=== PATIENT | male | born 1940 | race Caucasian/White ===

== ENCOUNTER 2016-08-17 16:53 | Inpatient (IN) | payer MEDICARE, OTHER ==
[~2016-08-17] VITALS: Ht 175.3 cm; Wt 102.5 kg
[2016-08-17] MEDS ORDERED: SEROQUEL100 MG PO (17:44)
[2016-08-17] MEDS ORDERED: MS CONTIN15 MG PO (17:45)
[2016-08-17] MEDS ORDERED: PROTONIX40 MG PO (17:45)
[2016-08-17] MEDS ORDERED: ATIVAN0.5 MG PO (17:46)
[2016-08-17] MEDS ORDERED: ACETAMINOPHEN325 MG PO (17:49)
[2016-08-17] MEDS ORDERED: SINEMET 25-1001 EACH PO (18:12)
[2016-08-17] MEDS ORDERED: COMTAN200 MG PO (18:13)
[2016-08-17] MEDS ORDERED: MILK OF MAGNESI30 ML PO (18:14)
[2016-08-17] MEDS ORDERED: BENGAY ULTRA S113 GM (18:17)
[2016-08-17] MEDS ORDERED: PERCOCET 5-3251 TAB PO (18:20)
[2016-08-17] MEDS ORDERED: MIRAPEX0.5 MG PO (18:21)
[2016-08-17] MEDS ORDERED: PROPRANOLOL HCL20 MG PO (18:22)
[2016-08-17] MEDS ORDERED: SENNA8.6 MG PO (18:24)
[2016-08-17 18:47] VITALS: BP 118/65; BMI 33.4
--- NOTE | 2016-08-17 19:03 | NUR ---
PATIENT ADMITTED TO SNF FROM [facility], HE HAS PARKINSON'S AND HE IS SHAKING. THE REASON HE IS HERE IS THAT HE SUNDOWNS AND BEGINS TO HALLUCINATE. HE SAYS HE KNOWS AT TIMES WHEN HE HALLUCINATES, BUT HE MOSTLY DOES NOT EVER KNOW WHEN HE IS MORE CONFUSED. HE FELL AT HOME THEN HE WENT TO REHAB AT [facility] THEN BECAME AGGRESSIVE AT REHAB AND WAS SENT TO ICU STEP DOWN FOR BEHAVIOR AND THEN TRANSFERRRED HERE.
[2016-08-17 19:30] VITALS: BP 103/76
[2016-08-17 19:59] LABS: BASOPHILS 0.3 % (0-2); EOSINOPHILS 6.6 % (0-7); HEMATOCRIT 42.6 % (42.0-54.0); HEMOGLOBIN 14.3 g/dL (13.5-17.5); IMMATURE GRANULOCYTES 0.3 % (0-5); LYMPHOCYTES 20.8 % (15-50); MCH 31.8 pg (26.0-34.0); MCHC 33.6 g/dL (31.0-37.0); MCV 94.9 fL (80.0-100.0); MEAN PLATELET VOLUME 9.5 fL (7.4-10.4); MONOCYTES 10.2 % (2-11); NEUTROPHILS 61.8 % (40-80); PLATELET COUNT 230 10x3/uL (130-400); RBC 4.49 10x6/uL (4.20-6.10); RDW 14.2 % (11.5-14.5); WBC 6.7 10x3/uL (4.8-10.8)
[2016-08-17 20:16] LABS: HEMOGLOBIN A1C 5.4 % (4.8-6.0)
[2016-08-17 20:44] LABS: ALBUMIN 3.3 g/dL (3.4-5.0); BILIRUBIN - TOTAL 0.56 mg/dL (0.2-1.3); CALCIUM 9.1 mg/dL (8.5-10.1); CARBON DIOXIDE 23.3 mmol/L (21.0-32.0); CHOL - HDL RATIO 4.3 ratio (2.3-4.9); CREATININE - SERUM 1.3 mg/dL (0.6-1.3); LDL-HDL RATIO 2.8 ratio (1.5-3.5); POTASSIUM - SERUM 4.3 mmol/L (3.5-5.1); PROTEIN - SERUM 7.4 g/dL (6.4-8.2); THYROID STIMULATING HORMONE 2.94 uIU/mL (0.36-3.74)
--- NOTE | 2016-08-17 23:49 | NUR ---
SAT UP ON SIDE OF BBED, INSISTING TO GET OUT OF OUR UNCOMFORTABLE BED. HE STARTED EXPERIENCING AN INCRESED LEVEL OF ANXIETY, YELLING, CLINCHED FISTS, HITTING STAFF, AND THREATENING COMMENTS TO HARM STAFF. ASSITED PATIENT IN RECLINER FOR COMFORT OF HIS BACK. STILL AGITATED, GAVE HALDOL 2 MG AND ATIVAN 0.5 MG IM IN RIGHT DELTOID.
[2016-08-18 09:02] VITALS: BP 135/64
--- NOTE | 2016-08-18 11:00 | NUR ---
B) PATIENT IS AWAKE AND ALERT, HE IS CALM AND COOPERATIVE SINCE HE IS UP OUT OF BED AND HAS RECEIVED AM MEDS. PATIENT IS DEMANDING AT TIMES. HE CALLS OUT FOR HIS KIM AND DOES HAVE SOME INTERMITTANT CONFUSION. I) PROVIDE PRESCRIBED MEDS. R) PATIENT IS COMPLIANT WITH MEDS AND HE IS KNOWLEDGABLE ABOUT THEM. PATIENT DID STAND WITH ASSIST, BUT HE DOES NOT WALK. P) CONTINUE PLAN OF CARE.
--- NOTE | 2016-08-18 15:19 | NUR ---
PATIENT C/O BACK PAIN AND REQUESTS A PAIN PILL, PROVIDED HIM OXYCODONE 5/325 PER ORDER. PATIENT RATES PAIN 8/10.
--- NOTE | 2016-08-18 16:00 | NUR ---
PATIENT RATES PAIN 5/10 AT THIS TIME.
--- NOTE | 2016-08-18 17:21 | NUR ---
PATIENT'S SPOUSE HERE AND SHE SAYS PT. WAS ALWAYS BUSY, NEVER LAZY AND ALL OF THIS IS VERY DIFFICULT FOR THEM, LIFE CHANGING. SHE SAYS PATIENT USE TO WORK FOR THE [employer] AND PATIENT SAID "YES, I HAVE MADE DECISIONS THAT HAVE CHANGED HISTORY".
[2016-08-18 19:30] VITALS: BP 115/81
--- NOTE | 2016-08-19 03:10 | NUR ---
B) Recieved patient in the day room alert and oriented to self and hospital, patient able to transfer and ambulate with assist for short distances, calm and cooperative this shift, I) Administered perscribed medications, monitored for falls and safety, R) Medication compliant, resting quietly now, P) Continue plan of care.
[2016-08-19 08:57] VITALS: BP 164/79
[2016-08-19 13:13] LABS: APPEARANCE CLEAR (CLEAR); COLOR DK YELLOW (YELLOW); GLUCOSE NEGATIVE (NEGATIVE); KETONE NEGATIVE (NEGATIVE); LEUKOCYTE ESTERASE TRACE (NEGATIVE); NITRITE NEGATIVE (NEGATIVE); PROTEIN NEGATIVE (NEGATIVE); SPECIFIC GRAVITY 1.015 (1.005-1.020)
[2016-08-19 13:14] LABS: BILIRUBIN NEGATIVE (NEGATIVE); EPITHELIAL CELLS 0-5 /hpf (0-5); RED CELLS - URINE OCC /hpf (0-5); UROBILINOGEN NORMAL (NORMAL); WHITE CELLS - URINE OCC /hpf (0-5)
[2016-08-19 13:15] LABS: BACTERIA FEW /hpf (NONE SEEN); MUCUS >1+ /lpf (NONE SEEN)
--- NOTE | 2016-08-19 18:15 | NUR ---
Patient has complaints of pain 7/10. He says that pain increases his tremors. Patient was given aspercreme, repositioned, along with prn percocet, which brought his pain level down, to a 5/10. Continue to monitor, continue plan of care
[2016-08-19 19:30] VITALS: BP 146/74
--- NOTE | 2016-08-19 22:28 | NUR ---
B) Recieved patient sitting in a dann chair in the day room watching TV, alert and oriented X 3, I) Administered perscribed medications, PRN Percocet given for leg pain at 2215, repositioned in bed, monitored for falls and safety, R) Medication compliant, resting in bed, P) Continue plan of care.
[2016-08-20 07:00] VITALS: BP 112/59
--- NOTE | 2016-08-20 14:51 | NUR ---
Patient is complaining of chronic pain, started with a 10/10 on the pain scale this morning. Patient repositioned, given prn percocet and tylenol. He was placed on geomat. Patient resting in dayroom, with eyes closed. Pain scale 5/10. continue to monitor
[2016-08-20 19:42] VITALS: BP 140/68
--- NOTE | 2016-08-20 19:59 | NUR ---
RECEIVED IN HALLWAY. SITTING IN A RECLINER OUTSIDE OF NURSES STAION. SOCIALIZING WITH A PEER. CALM AND COOPERATIVE WITH CARE AND ASSESSMENTS. NO SIGNS OF AGGRESSION. REDIRECT AND REORIENT NEEDED. CONTINUES TO SIT IN CHAIR SOCIALIZING AT TIMES. CONTINUE PLAN OF CARE
[2016-08-21 07:00] VITALS: BP 145/57
[2016-08-21 08:09] LABS: VITAMIN D 25 HYDROXY 13.3 ng/mL (30.0-100.0)
[2016-08-21 11:13] LABS: FOLATE (FOLIC ACID) - SERUM 9.3 ng/mL (>3.0)
--- NOTE | 2016-08-21 14:21 | PSY ---
PATIENT NAME:MOISE FOSTER MEDICAL RECORD: [id number] : 42 LOCATION:[facility] ADMISSION DATE: 08/17/16 ACCOUNT: [id number] PSYCHIATRIC EVALUATION DATE OF EVALUATION: 08/20/16 IDENTIFYING DATA: The patient is 76 years old and he is admitted to the hospital on a voluntary basis. CHIEF COMPLAINT: Aggression. HISTORY OF PRESENT ILLNESS: The patient was in the rehab hospital attached to [facility]. He was there because of a recent fall and was being assisted with his gait and strength training. He apparently became acutely delusional and paranoid. He was agitated and aggressive with the staff. He was subsequently placed in their intensive care unit just so that he could have closer monitoring and was referred to us. The patient denies any of these behaviors, but is clearly angry and unhappy in general. He complains that, literally, no one listens to him, addresses his needs, gives him his medications correctly or treats him politely or with respect. He is very adamant about his grievances, but unable to give me any specifics about time, place, person or other details that could be reasonably dressed. Interestingly, he also endorses numerous psychiatric symptoms including severe depressive symptoms, although he then denies that he is depressed. He says he does not want to hurt himself or others. PAST MEDICAL HISTORY: Significant for Parkinson's disease, bladder cancer, acid reflux, chronic back pain with multiple surgeries. PAST PSYCHIATRIC HISTORY: Significant for a previous and recent hospitalization at [facility] secondary to confused and agitated behavior. ALLERGIES: IODINE. CURRENT MEDICATIONS: Include Seroquel, Protonix, MS Contin, Ativan, Tylenol, Sinemet, Comtan, Milk of Magnesia, Percocet, Mirapex, Inderal, and Senokot. FAMILY HISTORY: Negative for psychiatric disease by his report. SOCIAL HISTORY: The patient is retired from the [employer]. He was in the [employer] for 25 years and then worked for another 25 years for the [employer]. He is a nonsmoker, nondrinker. Apparently, he functioned well both socially and occupationally. MENTAL STATUS EXAMINATION: The patient is awake, alert and oriented to person and place, but not to time or situation. His mood is angry. His affect is constricted. Thought processes are circumstantial and his memory, concentration and abstraction abilities are at least moderately impaired. He denies any active intent to harm himself or others and he denies current psychotic symptoms. ASSETS: Supportive family members. LIABILITIES: Limited insight. DIAGNOSTIC IMPRESSION: AXIS I: Parkinson's related dementia. AXIS II: None. AXIS III: Chronic back pain, Parkinson disease, renal failure. AXIS IV: Moderate stressors. AXIS V: Global assessment of functioning is 30. PLAN: At this time, the patient is admitted to the hospital for a comprehensive medical, psychological, and social evaluation. He will be treated with both mood stabilizing and memory enhancing medications. His long-term prognosis is guarded. TRANSINT:[id number] Voice Confirmation ID: [id number] DOCUMENT ID: [id number] HARRY ESTRADA MD at 1421 CC: [id number] DICTATION DATE: 08/20/16 1018 AS400 ADMINISTRATOR: 08/20/16 1114 ADM IN [place] [id number] [place] [id number]
--- NOTE | 2016-08-21 17:10 | NUR ---
Patient is oriented to self, time, place and situation. He continues to have chronic pain, which is aleviated by repositioning and medication. Prn percocet given for pain. He has to be fed, transfer with assist. Slip socks on, lena alarm activated. Continue to monitor.
[2016-08-21 19:42] VITALS: BP 134/68
--- NOTE | 2016-08-21 19:49 | NUR ---
RECEIVED IN HALLWAY. SITTING IN RECLINING CHAIR WITH EYES OPEN. NOT SOCIALIZING WITH PEERS. CONFUSED. CALM AND COOPERATIVE WITH CARE AND ASSESSMENTS. NO SIGNS OF AGGRESSION. REDIRECT AND REORIENT NEEDED. CONTINUES TO SIT QUIETLY IN CHAIR. CONTINUE PLAN OF CARE
[2016-08-22 03:09] LABS: RAPID PLASMA REAGIN Non Reactive (Non Reactive)
[2016-08-22 08:00] VITALS: BP 164/99
--- NOTE | 2016-08-22 10:00 | NUR ---
ALERT AND ORIENTED TIMES FOUR, CALM AND COOPERATIVE WITH AM ASSESSMENT. NO AGGRESSION, BUT IS ARGUMENTIVE AT TIMES. REDIRECTS EASILY. COMPLIANT WITH MEDICATIONS. SAFETY MAINTAINED. IN GOOD BEHAVIOR CONTROL. CONTINUE PLAN OF CARE.
--- NOTE | 2016-08-22 13:01 | PN ---
PATIENT:MOISE FOSTER MEDICAL RECORD: [id number] LOCATION:[facility] ADMISSION DATE: 08/17/16 PROGRESS NOTE DATE OF SERVICE: 08/21/2016 SUBJECTIVE: The patient's case was discussed with staff. He has no new complaint. OBJECTIVE: The patient was tested by Dr. Nicci Alvarez and found a score of 30/30. He is talking to me in a very coherent manner today. ASSESSMENT: The patient does not appear to have a dementia. It must be a delirium, probably related to multiple medical factors including medications. In addition to this, I do think the patient has a serious depressive illness. PLAN: The patient will have his Seroquel tapered down or even further. I anticipate he will clear more with this reduction. I am also going to increase his Effexor. His long-term prognosis is guarded. TRANSINT:[id number] Voice Confirmation ID: [id number] DOCUMENT ID: [id number] HARRY ESTRADA MD at 1301 CC: [id number] DICTATION DATE: 08/21/16 1448 TECHNOLOGY RECRUITER: 08/22/16 0108 ADM IN [facility] [address] [place] [address]
[2016-08-22] MEDS ORDERED: EFFEXOR50 MG PO (13:16)
[2016-08-22] MEDS ORDERED: ASPERCREME 5 OZ5 OZ TP (13:16)
[2016-08-22] MEDS ORDERED: SEROQUEL25 MG PO (13:16)
[2016-08-22] MEDS ORDERED: VITAMIN D5000 UNIT PO (13:18)
[2016-08-22 19:50] VITALS: BP 120/62
--- NOTE | 2016-08-23 01:06 | NUR ---
B) Recieved sitting in the day room alert and oriented x 3, calm and cooperative with care and assessment, impatient at times, I) Administered perscribed medications, monitored for safety, R) Medication compliant, resting in bed now, P) Continue plan of care.
[2016-08-23 08:00] VITALS: BP 114/62; BP 148/96
--- NOTE | 2016-08-23 12:30 | NUR ---
B) PATIENT IS NOT IN A GOOD MOOD, HE BEGAN SPEAKING NEGATIVELY ABOUT STAFF AND HOW THEY TREAT HIM, HE TOLD DR. CUMMINS THAT NO ONE OFFERED HIM WATER EVER. PATIENT DOES HOWEVER GET WATER FREQUENTLY HE TAKES MEDICATIONS EVERY FEW HOURS. PATIENT IS ANGRY BECAUSE HE WAS JUST TOLD HE WAS NOT DISCHARGING TO HOME TODAY AND A FACILITY THAT IS CLOSE TO HIS HOME DENIED HIM. HE IS IRRITABLE AND HAS BEGUN SPEAKING NEGATIVE. HE DOES TRY TO SPEAK DOWN TO PEOPLE AND CAN BE DEMANDING AND DEGRADING. ALLOWED PATIENT TO VENT AND PERHAPS GET HIS ANGER OUT. PATIENT DID AMBULATE THIS AM WITH PT, BUT HE WILL NOT TRY WHEN STAFF REQUESTS HIM TO DO SO. HE CAN STAND AND WALK, ALTHOUGH, IT IS A SHUFFLE D/T PARKINSONS. I) PROVIDE PRESCRIBED MEDS. R) ENCOURAGE PATIENT TO REMAIN INDEPENDENT. P) CONTINUE PLAN OF CARE.
[2016-08-23 14:26] VITALS: Ht 175.3 cm; Wt 102.5 kg
--- NOTE | 2016-08-23 14:42 | NUR ---
FAXED DISCHARGE OPRDER AND MED REC TO [facility], THEY ARE SUPPOSED TO PICK PATIENT UP AT 1500.
--- NOTE | 2016-08-23 15:00 | NUR ---
READYING PATIENT FOR D/C, WENT TO CALL REPORT TO [facility] AND I WAS TOLD THAT THE PATIENT NEEDS A HARRISON. DID LET MAURILIO RICKS AND HIS SPOUSE BE AWARE OF THE DELAY, WE WILL CALL HIS SPOUSE SOON WE KNOW THE DEFINITE OUTCOME. KENYATTA HARDY IS SUPPOED TO TAKING CARE OF THE ADMISSION FOR THIS PATIENT. WE WILL KNOW SOMETHING SOON.
--- NOTE | 2016-08-23 15:19 | NUR ---
CALLED REPORT TO AYLIN AT [facility] PATIENT IS PACKED AND READY TO GO.
--- NOTE | 2016-08-23 15:59 | PN ---
PATIENT:MOISE FOSTER MEDICAL RECORD: [id number] LOCATION:[facility] ADMISSION DATE: 08/17/16 PROGRESS NOTE DATE OF SERVICE: 08/22/2016 SUBJECTIVE: The patient's case was discussed with staff. He has no new complaint. OBJECTIVE: The patient is in good behavioral control with limited insight about his condition. He is wanting very much to get stronger and improved. This is reassuring to hear since the first part of his hospitalization he was just entirely focused upon how angry he is about all of the various ways he has been mistreated. ASSESSMENT: No change in diagnoses. PLAN: I anticipate the patient can be transitioned out of the hospital tomorrow. His long-term prognosis is guarded. TRANSINT:[id number] Voice Confirmation ID: [id number] DOCUMENT ID: [id number] HARRY ESTRADA MD at 1559 CC: [id number] DICTATION DATE: 08/22/16 1315 DIVE MASTER: 08/22/162027 ADM IN [place] [id number] [place] [id number]
--- NOTE | 2016-08-23 15:59 | PN ---
PATIENT:MOISE FOSTER MEDICAL RECORD: [id number] LOCATION:[facility] ADMISSION DATE: 08/17/16 PROGRESS NOTE DATE OF SERVICE: 08/22/2016 SUBJECTIVE: The patient's case was discussed with staff. He has no new complaint. OBJECTIVE: The patient denies that he would seek to harm himself or others. He generally is tolerating his medicines well. ASSESSMENT: No change in diagnoses. PLAN: The patient will be maintained on current medicines with the exception of Trilafon, which I am going to discontinue. I think his tremors are worse and whatever behavior issues he was having are now also improved. Hopefully, he can be managed without an antipsychotic. Obviously, that would be preferable given anyone's condition, but especially his with his Parkinson disease. TRANSINT:[id number] Voice Confirmation ID: [id number] DOCUMENT ID: [id number] HARRY ESTRADA MD at 1559 CC: [id number] DICTATION DATE: 08/22/16 1320 BEATER TENDER: 08/22/16 1352 ADM IN [facility] [address] [place] [address]
--- NOTE | 2016-08-27 13:05 | PN ---
PATIENT:MOISE FOSTER MEDICAL RECORD: [id number] [facility] ADMISSION DATE: 08/17/16 PROGRESS NOTE DATE OF SERVICE: 08/23/2016 SUBJECTIVE: The patient's case was discussed with staff. He has no new complaint. OBJECTIVE: The patient is in good behavioral control with limited insight about his condition. He does tolerate his medicines well. ASSESSMENT: No change in diagnoses. PLAN: The patient will be transitioned out of the hospital today. He is going to go to [facility]. His long-term prognosis is guarded. TRANSINT:[id number] Voice Confirmation ID: [id number] DOCUMENT ID: [id number] HARRY ESTRADA MD at 1305 CC: [id number] DICTATION DATE: 08/23/16 162 DIALYSIS TECH: 08/23/166 DIS IN 08/23/16 [place] [id number] [place] [address]
== END 2016-08-23 16:10 | DRG 57 ==
LOC: D.PSYCH 16:53
PROVIDERS: ADMIT Psychiatry & Neurology Psychiatry
DX: G20 Parkinson's disease (principal); F32.9 Major depressive disorder, single episode, unspecified; G89.29 Other chronic pain; M54.9 Dorsalgia, unspecified; Z91.81 History of falling; K21.9 Gastro-esophageal reflux disease without esophagitis; R26.89 Other abnormalities of gait and mobility; K59.00 Constipation, unspecified; D64.9 Anemia, unspecified; R41.0 Disorientation, unspecified; E55.9 Vitamin D deficiency, unspecified